=== PATIENT | female | born 1935 | race Caucasian/White ===

== ENCOUNTER 2016-03-18 07:16 | Outpatient (CLI) | payer MEDICARE, OTHER | END 2016-03-18 07:17 | disposition home or self-care (01) | DX: B97.89 Other viral agents as the cause of diseases classified elsewhere (principal) ==

== ENCOUNTER 2016-06-09 06:10 | Day surgery (SDC) | payer MEDICARE, OTHER ==
[2016-06-09] MEDS ORDERED: KETOROLAC 0.45% OPHTH DROPS OPTH ONE (06:40)
[2016-06-09] MEDS ORDERED: TROPICAMIDE 1% OPHTH 2 ML DROPS OPTH ONE (06:40)
[2016-06-09] MEDS ORDERED: CYCLOPENTOLATE 1% OPHTH DROPS 2 ML OPTH ONE (06:40)
[2016-06-09] MEDS ORDERED: LACTATED RINGERS 500 ML IV ONE (06:51)
[2016-06-09] MEDS ORDERED: BRIMONIDINE 0.2% OPHTH DROPS 5 ML OPTH ONE (07:24)
[2016-06-09] MEDS ORDERED: NEOMYCIN/POLYMYX/DEXAMETH OPHTH OINT OPTH ONE (07:25)
[2016-06-09] MEDS ORDERED: levoFLOXacin 0.5% OPHTH DROPS 5 ML OPTH ONE (07:25)
[2016-06-09] MEDS ORDERED: CHONDR SULF/HYALURONATE SYRINGE IO ONE ×2 (07:25)
[2016-06-09] MEDS ORDERED: BSS/LIDOCAINE/EPINEPHRINE 1 ML SYRINGE IO ONE ×2 (07:25→08:03)
[2016-06-09] MEDS ORDERED: EPINEPHrine 1 MG/ML AMP IO ONE ×2 (07:25)
[2016-06-09] MEDS ORDERED: PROPARACAINE 0.5% OPHTH DROPS 15 ML OPTH ONE (07:27)
[2016-06-09] MEDS ORDERED: MIDAZOLAM 2 MG/2 ML VIAL IVP ONE (08:14)
[2016-06-09] MEDS ORDERED: fentaNYL 100 MCG/2 ML VIAL IVP ONE (08:14)
== END 2016-06-09 06:11 | disposition home or self-care (01) ==
PROC: 08RK3JZ Replacement of Left Lens with Synthetic Substitute, Percutaneous Approach (ICD-10-PCS; principal; 2016-06-09 07:30)
DX: H25.12 Age-related nuclear cataract, left eye (principal); Z95.0 Presence of cardiac pacemaker; J45.909 Unspecified asthma, uncomplicated; J44.9 Chronic obstructive pulmonary disease, unspecified; F17.200 Nicotine dependence, unspecified, uncomplicated; E78.5 Hyperlipidemia, unspecified
CPT/HCPCS: 66984; V2632; V2787

== ENCOUNTER 2016-07-20 12:15 | Outpatient (CLI) | payer MEDICARE, OTHER | END 2016-07-20 12:16 | disposition home or self-care (01) | DX: S81.822A Laceration with foreign body, left lower leg, initial encounter (principal); T14.8 Other injury of unspecified body region; L08.9 Local infection of the skin and subcutaneous tissue, unspecified ==

== ENCOUNTER 2016-09-11 10:02 | Outpatient (CLI) | payer MEDICARE, OTHER ==
--- NOTE | 2016-09-11 20:26 | XRAY Report ---
EXAM: CHEST RADIOGRAPHY EXAM DATE: 09/11/2016 10:20 AM. CLINICAL HISTORY: EMPHYSEMA, HEMOPTYSIS. COMPARISON: 06/23/2015. TECHNIQUE: 2 views. FINDINGS: Lungs/Pleura: There are new basilar infiltrates present, left greater than right. Small left effusion is present. No pneumothorax. Mediastinum: Heart and mediastinal contours are unremarkable. Other: Stable left subclavian pacemaker. IMPRESSION: New left greater than right basilar infiltrates and small left effusion. [facility] Referring Provider Line: [phone] SITE ID: [id number]
== END 2016-09-11 10:03 | disposition home or self-care (01) ==
LOC: DI 10:02
PROVIDERS: ATTEND Family Medicine
DX: R91.8 Other nonspecific abnormal finding of lung field (principal); J90 Pleural effusion, not elsewhere classified
CPT/HCPCS: 71020

== ENCOUNTER 2016-09-27 10:26 | Outpatient (CLI) | payer MEDICARE, OTHER ==
--- NOTE | 2016-09-27 15:20 | XRAY Report ---
TWO VIEW CHEST: 09/27/2016 CLINICAL INDICATION: Pneumonia followup. COMPARISON: 09/11/2016. FINDINGS: Frontal and lateral views of the chest demonstrate a normal cardiac silhouette. A left sub clavian pacemaker is stable. Left basilar infiltrate is improving, with decreasing left effusion. No pneumothorax. IMPRESSION: IMPROVING BASILAR INFILTRATE AND LEFT EFFUSION. JOB #: [id number] EXT JOB #:[id number]
== END 2016-09-27 10:27 | disposition home or self-care (01) ==
LOC: DI.N 10:26
PROVIDERS: ATTEND Family Medicine
DX: J18.9 Pneumonia, unspecified organism (principal); Z95.0 Presence of cardiac pacemaker
CPT/HCPCS: 71020

== ENCOUNTER 2016-10-07 09:13 | Outpatient (CLI) | payer MEDICARE, OTHER ==
[2016-10-07 13:36] LABS: BASOPHILS # (AUTO) 0.1 10^3/uL (0.0-0.1); BASOPHILS % (AUTO) 1.2 %; EOSINOPHILS % (AUTO) 21.3 %; HCT - HEMATOCRIT 37.8 % (37.0-47.0); HGB - HEMOGLOBIN 12.9 g/dL (12.0-16.0); LYMPHOCYTES # (AUTO) 0.9 10^3/uL (1.5-3.5); LYMPHOCYTES % (AUTO) 9.2 %; MEAN CORPUSCULAR HEMOGLOBIN 30.9 pg (27.0-31.0); MEAN CORPUSCULAR HGB CONC 34.1 g/dL (32.0-36.0); MEAN CORPUSCULAR VOLUME 90.7 fL (81.0-99.0); MONOCYTES % (AUTO) 10.3 %; NEUTROPHILS # (AUTO) 5.5 10^3/uL (1.5-6.6); RED BLOOD COUNT 4.17 10^6/uL (4.20-5.40); RED CELL DISTRIBUTION WIDTH 13.5 % (12.0-15.0); UNCORRECTED WHITE BLOOD COUNT 9.4 x10^3/uL; WHITE BLOOD COUNT 9.4 x10^3/uL (4.8-10.8)
[2016-10-07 13:46] LABS: ALBUMIN/GLOBULIN RATIO 1.4 (1.0-2.2); BILIRUBIN,TOTAL 0.6 mg/dL (0.2-1.0); BUN - BLOOD UREA NITROGEN 18 mg/dL (6-20); CALCIUM 9.1 mg/dL (8.5-10.3); CARBON DIOXIDE - CO2 30 mmol/L (21-32); CHLORIDE 96 mmol/L (101-111); CHOL/HDL RATIO 1.9 (<4.4); CHOLESTEROL 169 mg/dL; CREATININE 0.5 mg/dL (0.4-1.0); GFR - MDRD 118 (>89); GLUCOSE 72 mg/dL (70-100); HDL CHOLESTEROL 87 mg/dL; LDL/HDL RATIO 0.8 (<4.4); SODIUM 132 mmol/L (135-145); TOTAL PROTEIN 6.1 g/dL (6.7-8.2); TRIGLYCERIDES 47 mg/dL; VLDL CHOLESTEROL 9 mg/dL
[2016-10-07 14:05] LABS: NP AUTO DIFFERENTIAL? NO; NP MAN DIFFERENTIAL? YES
== END 2016-10-07 09:14 ==
LOC: LAB.WCP 09:13
PROVIDERS: ATTEND Family Medicine
DX: I10 Essential (primary) hypertension (principal); E78.5 Hyperlipidemia, unspecified
CPT/HCPCS: 36415; 80053; 80061; 85025

== ENCOUNTER 2016-10-19 11:32 | Outpatient (CLI) | payer MEDICARE, OTHER ==
--- NOTE | 2016-10-20 17:26 | CT Report ---
CT OF THE CHEST WITHOUT CONTRAST: 10/19/2016 CLINICAL HISTORY: Pneumonia. TECHNIQUE: Axial images were obtained from the thoracic inlet through the adrenal glands. Sagittal and coronal reformations were performed. COMPARISON: 06/26/2015. FINDINGS: Moderately advanced centrilobular emphysema is again identified. There are superimposed bibasilar (left greater than right) air space / interstitial infiltrates noted. No pleural effusion is present. The previously described pulmonary nodules are minimally increased in size, uncertain significance. The right upper lobe pulmonary nodule measures approximately 10 mm (previously measured 9 mm). There is a left upper lobe pulmonary nodule measuring approximately 9 mm (previously measured 7 mm). Additional patchy areas of scar formation are unchanged. The heart and great vessels are stable. Advanced atherosclerotic calcifications are affiliated with the aorta and coronary arteries. There is no hilar, mediastinal or axillary adenopathy. A dual-lead pacer entering through the left subclavian vein is again noted. Advanced multilevel degenerative changes are present in the lumbar spine. There are no lytic or blastic destructive lesions. IMPRESSION: 1. BILATERAL BASILAR (LEFT GREATER THAN RIGHT) PATCHY INFILTRATES. NO PLEURAL EFFUSION. 2. MINIMAL INTERVAL INCREASE IN SIZE OF PULMONARY NODULES, UNCERTAIN SIGNIFICANCE. In accordance with CT protocol optimization, one or more of the following dose reduction techniques were utilized for this exam: automated exposure control, adjustment of mA and/or KV based on patient size, or use of iterative reconstructive technique. JOB #: [id number] EXT JOB #: [id number] TAYLA
== END 2016-10-19 11:33 | disposition home or self-care (01) ==
LOC: DI 11:32
PROVIDERS: ATTEND Family Medicine
DX: J18.9 Pneumonia, unspecified organism (principal); J43.2 Centrilobular emphysema; R91.8 Other nonspecific abnormal finding of lung field
CPT/HCPCS: 71250

== ENCOUNTER 2016-12-28 11:45 | Outpatient (CLI) | payer MEDICARE, OTHER | END 2016-12-28 11:46 | disposition home or self-care (01) | LOC: LAB.WCP 11:45 | PROVIDERS: ATTEND Family Medicine | DX: S81.811A Laceration without foreign body, right lower leg, initial encounter (principal) | CPT/HCPCS: 87070; 87077; 87205 ==

== ENCOUNTER 2017-08-22 | Outpatient (CLI) | END 2017-08-22 08:22 | disposition short-term general hospital (02) | CPT/HCPCS: A0425; A0427 ==

== ENCOUNTER 2017-09-13 20:03 | Outpatient (CLI) | payer MEDICARE, OTHER | END 2017-09-13 20:04 | disposition short-term general hospital (02) | LOC: EMS 20:03 | PROVIDERS: ATTEND Surgery | DX: R07.81 Pleurodynia (principal); W01.0XXA Fall on same level from slipping, tripping and stumbling without subsequent striking against object, initial encounter; Y92.007 Garden or yard of unspecified non-institutional (private) residence as the place of occurrence of the external cause | CPT/HCPCS: A0425; A0429 ==

== ENCOUNTER 2018-03-09 15:03 | Outpatient (CLI) | payer MEDICARE, OTHER | END 2018-03-09 15:04 | disposition short-term general hospital (02) | LOC: EMS 15:03 | PROVIDERS: ATTEND Surgery | DX: R06.02 Shortness of breath (principal) | CPT/HCPCS: A0425; A0429; A0888 ==

== ENCOUNTER 2018-03-22 08:00 | Outpatient (CLI) | payer MEDICARE, OTHER ==
[2018-03-22 18:42] LABS: HGB - HEMOGLOBIN 14.8 g/dL (12.0-16.0); MEAN CORPUSCULAR HEMOGLOBIN 30.7 pg (27.0-31.0); MEAN CORPUSCULAR VOLUME 93.1 fL (81.0-99.0); MEAN PLATELET VOLUME 6.8 fL (7.9-10.8); RED BLOOD COUNT 4.83 10^6/uL (4.20-5.40); RED CELL DISTRIBUTION WIDTH 13.8 % (12.0-15.0); WHITE BLOOD COUNT 10.9 x10^3/uL (4.8-10.8)
[2018-03-22 18:58] LABS: CALCIUM 8.9 mg/dL (8.5-10.3); CREATININE 0.5 mg/dL (0.4-1.0)
== END 2018-03-22 23:59 | disposition home or self-care (01) ==
LOC: LAB.WCP 08:00
PROVIDERS: ATTEND Family Medicine
DX: R06.00 Dyspnea, unspecified (principal)
CPT/HCPCS: 36415; 80048; 83880; 85027

== ENCOUNTER 2018-06-16 15:02 | Outpatient (CLI) | payer MEDICARE, OTHER ==
--- NOTE | 2018-06-16 15:27 | XRAY Report ---
Reason: DYSPNEA ON EXERTION, COPD, ACUTE EXACERBATION Procedure Date: 06/16/2018 Accession Number: [id number] / [id number] Procedure: WCP - Chest 2 View X-Ray CPT Code: 99247 FULL RESULT: EXAM: CHEST RADIOGRAPHY EXAM DATE: 06/16/2018 03:14 PM. CLINICAL HISTORY: Dyspnea on exertion, COPD, acute exacerbation. COMPARISON: Chest 2 views PA/LAT 03/27/2018. Chest angiogram 06/26/2015. TECHNIQUE: 2 views. FINDINGS: Lungs/Pleura: A previously identified 1 cm nodule in the right upper lung is redemonstrated and corresponds to a soft tissue nodule previously seen on the 2016 CT. No focal opacities evident. No pleural effusion. No pneumothorax. Increased lung volumes with flattened diaphragms, suggestive of obstructive lung disease. Mediastinum: Heart and mediastinal contours are stable with calcified aortic arch and pacemaker leads in the expected position. Other: The bones are qualitatively osteopenic; this limits evaluation for underlying fractures or masses. Stable thoracic kyphosis with mild multilevel anterior wedging and no single level dominant compression fracture detected. IMPRESSION: Obstructive lung disease without acute airspace consolidation detected. Soft tissue nodule. Unless long-term stability of these nodules has been documented (greater than 2 years), a chest CT is warranted at this time for follow-up. [facility]
== END 2018-06-16 15:03 | disposition home or self-care (01) ==
LOC: DI.WCP 15:02
PROVIDERS: ATTEND Family Medicine
DX: J44.1 Chronic obstructive pulmonary disease with (acute) exacerbation (principal); R91.1 Solitary pulmonary nodule
CPT/HCPCS: 71046

== ENCOUNTER 2018-06-22 12:33 | Outpatient (CLI) | payer MEDICARE, OTHER ==
--- NOTE | 2018-06-22 14:06 | CT Report ---
Reason: PULMONARY NODULE Procedure Date: 06/22/2018 Accession Number: [id number] / [id number] Procedure: CT - CHEST WO CPT Code: FULL RESULT: EXAM: CT CHEST EXAM DATE: 06/22/2018 12:49 PM. CLINICAL HISTORY: PULMONARY NODULE. COMPARISONS: CHEST W/O 10/19/2016 11:51 AM CHEST ANGIO 06/26/2015 4:10 PM. TECHNIQUE: Routine helical CT imaging was performed through the chest. IV contrast: None. Reconstructions: Coronal and sagittal. In accordance with CT protocol optimization, one or more of the following dose reduction techniques were utilized for this exam: automated exposure control, adjustment of mA and/or KV based on patient size, or use of iterative reconstructive technique. FINDINGS: Lungs/Pleura: Redemonstration of advanced centrilobular emphysema. Redemonstration of lobulated noncalcified mass in anterior right upper lobe (image 17, series 4) which currently measures 10 x 10 mm diameter. On the oldest available CT exam from 06/26/2015, it measured 9 x 9.2 mm diameter. There is a small subpleural subcentimeter scar like opacity in the anterior left upper lobe that is stable and unchanged dating back to 2016. No other focal abnormality. Since the 2017 exam, there has been essentially complete resolution of the previously described bilateral lower lobe pneumonia like parenchymal opacities. There is scarring of the medial basilar right lower lobe. Mediastinum: Normal. No adenopathy or masses. The heart and great vessels are normal. Dual lumen pacemaker present. Bones: Unremarkable. Visualized Abdomen: Unremarkable. Other: None. IMPRESSION: 1. Advanced emphysema. 2. There is a probably benign stable 9-10 mm maximal diameter lobulated noncalcified anterior right upper lobe mass not significantly changed dating back to 2016. Recommend one more additional follow-up CT exam in one year. Intravenous contrast is not required. 3. No change in subcentimeter scar like opacity in the anterior left upper lobe of no clinical significance. 4. Interval resolution of previous bilateral lower lobe pneumonia present in 2017. [facility]
== END 2018-06-22 12:34 | disposition home or self-care (01) ==
LOC: DI 12:33
PROVIDERS: ATTEND Family Medicine
DX: J98.4 Other disorders of lung (principal); J43.9 Emphysema, unspecified
CPT/HCPCS: 71250

== ENCOUNTER 2018-10-02 09:23 | Outpatient (CLI) | payer MEDICARE, OTHER ==
[2018-10-02 13:04] LABS: BASOPHILS # (AUTO) 0.1 10^3/uL (0.0-0.1); EOSINOPHILS # (AUTO) 0.7 10^3/uL (0.0-0.7); EOSINOPHILS % (AUTO) 10.5 %; HGB - HEMOGLOBIN 13.5 g/dL (12.0-16.0); LYMPHOCYTES # (AUTO) 1.7 10^3/uL (1.5-3.5); LYMPHOCYTES % (AUTO) 24.5 %; MEAN CORPUSCULAR HEMOGLOBIN 30.5 pg (27.0-31.0); MEAN CORPUSCULAR HGB CONC 32.2 g/dL (32.0-36.0); MEAN CORPUSCULAR VOLUME 94.8 fL (81.0-99.0); MEAN PLATELET VOLUME 9.1 fL (7.9-10.8); MONOCYTES # (AUTO) 0.6 10^3/uL (0.0-1.0); MONOCYTES % (AUTO) 8.1 %; NEUTROPHILS # (AUTO) 3.9 10^3/uL (1.5-6.6); NEUTROPHILS % (AUTO) 55.5 %; PLT - PLATELET COUNT 216 10^3/uL (130-450); RED BLOOD COUNT 4.42 10^6/uL (4.20-5.40); RED CELL DISTRIBUTION WIDTH 13.9 % (12.0-15.0); WHITE BLOOD COUNT 7.1 x10^3/uL (4.8-10.8)
== END 2018-10-02 09:24 | disposition home or self-care (01) ==
LOC: LAB.WCP 09:23
PROVIDERS: ATTEND Family Medicine
DX: F41.9 Anxiety disorder, unspecified (principal); R23.8 Other skin changes
CPT/HCPCS: 36415; 84443; 85025

== ENCOUNTER 2018-11-13 08:00 | Outpatient (CLI) | payer MEDICARE, OTHER ==
[2018-11-13 18:40] LABS: BASOPHILS # (AUTO) 0.1 10^3/uL (0.0-0.1); EOSINOPHILS # (AUTO) 0.6 10^3/uL (0.0-0.7); EOSINOPHILS % (AUTO) 8.8 %; HGB - HEMOGLOBIN 13.8 g/dL (12.0-16.0); LYMPHOCYTES # (AUTO) 1.6 10^3/uL (1.5-3.5); LYMPHOCYTES % (AUTO) 22.3 %; MEAN CORPUSCULAR HEMOGLOBIN 31.6 pg (27.0-31.0); MEAN CORPUSCULAR HGB CONC 33.9 g/dL (32.0-36.0); MEAN CORPUSCULAR VOLUME 93.1 fL (81.0-99.0); MEAN PLATELET VOLUME 9.3 fL (7.9-10.8); MONOCYTES # (AUTO) 0.6 10^3/uL (0.0-1.0); MONOCYTES % (AUTO) 9.1 %; NEUTROPHILS # (AUTO) 4.1 10^3/uL (1.5-6.6); NEUTROPHILS % (AUTO) 58.7 %; PLT - PLATELET COUNT 178 10^3/uL (130-450); RED BLOOD COUNT 4.37 10^6/uL (4.20-5.40); RED CELL DISTRIBUTION WIDTH 13.2 % (12.0-15.0)
== END 2018-11-13 08:01 | disposition home or self-care (01) ==
LOC: LAB.R 08:00
PROVIDERS: ATTEND Physician Assistant
DX: R23.8 Other skin changes (principal)
CPT/HCPCS: 85025

== ENCOUNTER 2019-02-11 08:24 | Emergency (ER) | payer MEDICARE, OTHER ==
[2019-02-11 08:34] VITALS: BP 130/62
--- NOTE | 2019-02-11 08:51 | ED Physician Documentation ---
PD HPI UPPER EXT INJURY - Stated complaint Stated Complaint: WOUND CHECK RT ARM - Chief complaint Chief Complaint: Laceration - History obtained from History obtained from: Patient - History of Present Illness Location: Right, Forearm Type of injury: Blunt / blow (she had had skin tear of forearm from hitting arm on object 1 1/2 weeks ago, that was healing, with small area of skin loss that pulled off with bandaid removal. and then her grabbed her forearm last night in his sleep (she denies intentional harm on his part) and rubbed at the prior wound, with pulling/tearing of the skin again and slightly bigger now. The pulled skin is thin.) Where injury occurred: Home Timing - onset: Last night Timing - details: Abrupt onset Worsened by: Palpating Review of Systems Skin: reports: Laceration (s) (thin skin peeling wound.) Neurologic: denies: Focal weakness, Numbness PD PAST MEDICAL HISTORY - Past Medical History Past Medical History: Yes Cardiovascular: Hypertension, High cholesterol Respiratory: Asthma, COPD, Emphysema Endocrine/Autoimmune: None GI: None : None HEENT: Chronic vision loss, Chronic hearing loss Psych: Depression Musculoskeletal: Osteoarthritis, Other Derm: None - Past Surgical History Past Surgical History: Yes General: Colonoscopy Cardiovascular: Pacemaker - Present Medications Home Medications: Ambulatory Orders Medication Instructions Recorded Confirmed Albuterol Sulfate [Proair 1 puffs IH BID 08/03/14 07/30/16 Respiclick] Carbidopa/Levodopa [Carbidopa-Levo 3 tab PO TID 08/03/14 07/30/16 25-100 mg Odt] amLODIPine [Norvasc] 5 mg PO DAILY 08/03/14 07/30/16 Cholecalciferol (Vitamin D3) 1,000 unit PO DAILY 06/08/16 07/30/16 [Vitamin D3] Potassium Chloride 1 tab PO DAILY 07/30/16 07/30/16 - Allergies Allergies/Adverse Reactions: Allergies Allergy/AdvReac Type Severity Reaction Status Date / Time No Known Drug Allergies Allergy Verified 02/11/19 08:34 - Social History Does the pt smoke?: Yes Smoking Status: Current every day smoker Does the pt drink ETOH?: Yes Does the pt have substance abuse?: No - Immunizations Immunizations are current?: Yes - POLST Patient has POLST: No PD ED PE NORMAL - Vitals Vital signs reviewed: Yes - General General: Alert and oriented X 3, No acute distress, Well developed/nourished - Derm Derm: Normal color, Warm and dry - Extremities Extremities: Other (right forearm with 2 cm area of skin tear that is thin and partial thickness. No deeper wound. No FB/appears clean. No bleeding. ) - Neuro Neuro: No motor deficit, No sensory deficit Results - Vitals Vitals: Vital Signs - 24 hr 02/11/19 08:27 Temperature 36.7 C Heart Rate 63 Respiratory 16 Rate Blood Pressure 130/62 O2 Saturation 100 Oxygen O2 Source Room air PD MEDICAL DECISION MAKING - ED course Complexity details: considered differential (cleansed and then dried; benzion and steristrips applied. Then dressing with Telfa and coban. ), d/w patient Departure - Departure Disposition: 01 Home, Self Care Clinical Impression: Skin tear of forearm without complication Qualifiers: Encounter type: initial encounter Laterality: right Qualified Code(s): S51.811A - Laceration without foreign body of right forearm, initial encounter Condition: Stable Record reviewed to determine appropriate education?: Yes Instructions: ED Laceration Ext Sutr Stap Tape Follow-Up: Ailyn Odonnell PA-C [Primary Care Provider] - Comments: Leave the Steri-Strips on the skin and keep them clean and dry. This will hold down the flap of skin over the next week or so. Allow them to fall off on their own in that timeframe. Over that use a nonadherent bandage such as Telfa or gauze and wrap it gently and not too tightly with a Covan or self adherent bandage and not to apply tape to the skin itself. Recheck if signs of infection. Follow-up with your primary care if it is not healing well over the next week. Discharge Date/Time: 02/11/19 09:29
== END 2019-02-11 09:29 | disposition home or self-care (01) ==
LOC: ED 08:24
DX: S51.811A Laceration without foreign body of right forearm, initial encounter (principal); X58.XXXA Exposure to other specified factors, initial encounter; Y93.84 Activity, sleeping; Y92.003 Bedroom of unspecified non-institutional (private) residence as the place of occurrence of the external cause; I10 Essential (primary) hypertension; F17.200 Nicotine dependence, unspecified, uncomplicated
CPT/HCPCS: 99282

== ENCOUNTER 2019-03-23 12:18 | Outpatient (CLI) | payer MEDICARE, OTHER ==
--- NOTE | 2019-03-26 11:42 | Mammography Report ---
Reason: ROUTINE MAMMO Procedure Date: 03/23/2019 Accession Number: [id number] / [id number] Procedure: MGN - Screening Mammo Dig Bilat CPT Code: Final Report FULL RESULT: EXAM: Screening Mammo Dig Bilat DATE: 03/23/2019 12:53 PM CLINICAL HISTORY: Routine screening TECHNIQUE: (B) - Bilateral CC and MLO views were obtained. COMPARISON: 04/30/2014, 04/12/2013, 04/27/2012, 04/22/2011, 03/19/2010, 03/14/2009 PARENCHYMAL PATTERN: (VD) - The breasts demonstrate extremely dense parenchyma bilaterally, limiting the sensitivity of mammography. FINDINGS: No significant interval change. Cardiac pacemaker left axilla. There are no suspicious masses, calcifications, or areas of distortion. IMPRESSION: Negative examination. BI-RADS category 1. RECOMMENDATION: (ANNUAL) - Recommend routine annual screening mammography. BI-RADS CATEGORY: (1) - Negative. STANDARD QUALIFYING STATEMENTS: 1. This examination was not reviewed with the aid of Computer-Aided Detection (CAD). 2. A negative or benign imaging report should not preclude biopsy if clinically suspicious findings are present. 3. Dense breasts may obscure an underlying neoplasm. 4. This examination was reviewed without the aid of 3D breast imaging (tomosynthesis).
== END 2019-03-23 12:19 | disposition home or self-care (01) ==
LOC: DI.N 12:18
DX: Z12.31 Encounter for screening mammogram for malignant neoplasm of breast (principal)
CPT/HCPCS: 77067

== ENCOUNTER 2019-07-10 08:00 | Outpatient (CLI) | payer MEDICARE, OTHER ==
[2019-07-10 13:46] LABS: ALBUMIN 4.3 g/dL (3.2-5.5); ALBUMIN/GLOBULIN RATIO 1.7 (1.0-2.2); ALKALINE PHOSPHATASE 83 IU/L (42-121); ALT ALANINE AMINOTRANSFERASE < 10 IU/L (10-60); AST ASPARTATE AMINOTRANSFERASE 21 IU/L (10-42); BILIRUBIN,TOTAL 0.9 mg/dL (0.2-1.0); BUN - BLOOD UREA NITROGEN 18 mg/dL (6-20); CALCIUM 9.3 mg/dL (8.5-10.3); CARBON DIOXIDE - CO2 31 mmol/L (21-32); CHLORIDE 100 mmol/L (101-111); CHOL/HDL RATIO 2.3 (<4.4); CHOLESTEROL 227 mg/dL; CREATININE 0.7 mg/dL (0.4-1.0); GLUCOSE 100 mg/dL (70-100); HDL CHOLESTEROL 98 mg/dL; LDL CHOLESTEROL,CALCULATED 120 mg/dL; LDL/HDL RATIO 1.2 (<4.4); SODIUM 137 mmol/L (135-145); TOTAL PROTEIN 6.8 g/dL (6.7-8.2); VLDL CHOLESTEROL 9 mg/dL
== END 2019-07-10 23:59 | disposition home or self-care (01) ==
LOC: LAB.WCP 08:00
PROVIDERS: ATTEND Physician Assistant Medical
DX: E78.5 Hyperlipidemia, unspecified (principal)
CPT/HCPCS: 36415; 80053; 80061; 83721

== ENCOUNTER 2019-08-02 08:53 | Outpatient (CLI) | payer MEDICARE, OTHER ==
--- NOTE | 2019-08-03 11:36 | CT Report ---
Reason: PULMONARY NODULE Procedure Date: 08/02/2019 Accession Number: [id number] / [id number] Procedure: CT - CHEST WO CPT Code: Final Report FULL RESULT: EXAM: CT CHEST EXAM DATE: 08/02/2019 09:23 AM. CLINICAL HISTORY: Pulmonary nodule. COMPARISONS: CHEST W/O 06/22/2018 12:46 PM CHEST W/O 10/19/2016 11:51 AM CHEST ANGIO 06/26/2015 4:10 PM. TECHNIQUE: Routine helical CT imaging was performed through the chest. IV contrast: None. Reconstructions: Coronal and sagittal. In accordance with CT protocol optimization, one or more of the following dose reduction techniques were utilized for this exam: automated exposure control, adjustment of mA and/or KV based on patient size, or use of iterative reconstructive technique. FINDINGS: Lungs/Pleura: Extensive emphysematous changes are again seen. Lobular anterior right upper lobe nodule measuring 11 x 10 mm image 100, series 4 stable compared to 06/22/2018 although slightly more prominent compared to 10/19/2016 and 06/26/2015 where it measured up to 9 mm. Punctate calcification is seen within the nodule on the current study. Stellate nodular opacities are seen in the left upper lobe seen on image 81, series 4 which is new measuring 6.5 mm and on image 84 series 4 measuring 12 mm which is slightly more prominent. Focal Subsolid nodular opacity image 141, series 4 right upper lobe measuring 10 mm increased in density and slightly more prominent. Bilateral bronchial dilatation. Bilateral mid and lower lung scar/atelectasis. Mediastinum: Heart size is normal. Coronary artery calcified plaque. Thoracic aortic calcified plaque. No enlarged mediastinal or hilar lymph nodes. Small hiatal hernia. Bones: Degenerative changes of the thoracic spine as well as the upper lumbar and lower cervical spine. No acute osseous abnormalities. Visualized Abdomen: Abdominal aortic atherosclerosis. Low-attenuation lesion left lobe of the liver 12 mm, stable. Otherwise unremarkable upper abdomen. Other: None. IMPRESSION: 1. Marked emphysematous changes. 2. Lobular 11 x 10 mm anterior right upper lobe lesion stable compared to recent studies although minimally more prominent compared to 06/26/2015 although similar compared to the most recent comparison studies. 3. New 6.5 mm left upper lobe nodule and more prominent left upper lobe nodular opacity and groundglass nodule in the inferior right upper lobe, slightly more dense. Continued surveillance recommended based on Fleischner criteria with follow-up chest CT in 3-6 months. [facility]
== END 2019-08-02 08:54 | disposition home or self-care (01) ==
LOC: DI 08:53
PROVIDERS: ATTEND Physician Assistant Medical
DX: R91.8 Other nonspecific abnormal finding of lung field (principal); J43.9 Emphysema, unspecified
CPT/HCPCS: 71250

== ENCOUNTER 2019-08-15 09:29 | Outpatient (CLI) | payer MEDICARE, OTHER ==
--- NOTE | 2019-08-15 11:14 | DEXA Report ---
Reason: POST MENOPAUSAL Procedure Date: 08/15/2019 Accession Number: [id number] / [id number] Procedure: DEX - Dexa Spine and/or Hip CPT Code: Final Report FULL RESULT: PROCEDURE: Dexa Spine and/or Hip INDICATIONS: POST MENOPAUSAL TECHNIQUE: Dual energy x-ray absorptiometry (DXA) was performed on a [employer] System. Regions measured are the AP Spine, femoral neck, and if needed forearm. COMPARISON: None. FINDINGS: Lumbar Spine: Bone Mineral Density 1.115 g/cm/cm,T score -0.5, Left Femoral Neck: Bone Mineral Density 0.567 g/cm/cm, T score -3.5, (T score greater or equal to -1.0: NORMAL) (T score from -1.1 to -2.4: OSTEOPENIA) (T score less than or equal to -2.5 to: OSTEOPOROSIS) Impression: Osteoporosis. Patients with diagnosis of osteoporosis or osteopenia should have regular bone mineral density assessment. For those eligible for Medicare, routine testing is allowed once every 2 years. Testing frequency can be increased for patients who have rapidly progressing disease or for those who are receiving medical therapy to restore bone mass. Reviewed by: Israel Cantu MD on 08/15/2019 11:13 AM PDT Approved by: Israel Cantu MD on 08/15/2019 11:13 AM PDT Station ID: [id number]
== END 2019-08-15 09:30 | disposition home or self-care (01) ==
LOC: DI 09:29
PROVIDERS: ATTEND Physician Assistant Medical
DX: M81.0 Age-related osteoporosis without current pathological fracture (principal)
CPT/HCPCS: 77080

== ENCOUNTER 2019-12-11 09:44 | Outpatient (CLI) | payer MEDICARE, OTHER ==
[2019-12-11 12:28] LABS: CALCIUM 8.9 mg/dL (8.5-10.3); CREATININE 0.6 mg/dL (0.4-1.0)
== END 2019-12-11 23:59 | disposition home or self-care (01) ==
LOC: LAB.WCP 09:44
PROVIDERS: ATTEND Physician Assistant Medical
DX: J98.4 Other disorders of lung (principal)
CPT/HCPCS: 36415; 80048

== ENCOUNTER 2019-12-24 09:00 | Outpatient (CLI) | payer MEDICARE, OTHER ==
[2019-12-24] MEDS ORDERED: IOVERSOL 320 100 ML VIAL IVP ONE ×2 (09:25→10:17)
--- NOTE | 2019-12-24 12:36 | XRAY Report ---
PROCEDURE: Hip w/Pelvis 2-3V RT INDICATIONS: RIGHT HIP PAIN TECHNIQUE: AP pelvis with lateral view(s) of the bilateral hip(s). COMPARISON: None. FINDINGS: Bones: No fractures or dislocations. Pelvic ring appears intact. No suspicious bony lesions. Ther e is severe right and mild to moderate left degenerative narrowing of the hip joints. Prominent subch ondral sclerosis and questionable very subtle flattening of the femoral head as noted on the right. P rominent periarticular osteophytes are also present. Soft tissues: The visualized bowel gas pattern is normal. No suspicious soft tissue calcifications. IMPRESSION: Bilateral osteoarthritic change within the hips most severe on the right. Very subtle ch anges on the right are present suggestive of potential early changes of avascular necrosis. Reviewed by: Lashawn Delaney MD on 12/24/2019 12:35 PM PDT Approved by: Lashawn Delaney MD on 12/24/2019 12:35 PM PDT Station ID: [id number]
--- NOTE | 2019-12-24 12:42 | CT Report ---
PROCEDURE: CHEST W INDICATIONS: RT HIP PAIN, PULMONARY NODULE CONTRAST: IV CONTRAST: Optiray 320 ml: 100 PO CONTRAST: *NO PO CONTRAST TECHNIQUE: After the administration of intravenous contrast, 5 mm thick sections acquired from the pulmonary api jackie to the posterior costophrenic angles. 7 mm thick coronal MIP reformats were acquired. For radia tion dose reduction, the following was used: automated exposure control, adjustment of mA and/or kV according to patient size. COMPARISON: 08/02/2019 06/22/2018 FINDINGS: Image quality: Excellent. Lungs and pleura: Lobulated 10 mm solid mass in the anterior right upper lobe (/), appears stable . Several left upper lobe lung nodules are redemonstrated, one rounded measuring 6 mm (76, another is spiculated and linear, located anteriorly measuring 1.2 cm in length, another anterior solid nodul e measuring 6 mm (/87), and one measuring 3 mm, slightly more caudal. Groundglass nodular opacity la terally in the right upper lobe with irregular margins is essentially unchanged, measuring about 1.6 cm (/135). Findings are superimposed on moderate diffuse emphysematous changes. Mucous plugging is p resent in right lower lobe central airways. No significant bronchiectasis or peribronchial thickening . No pleural effusion. Mediastinum: Heart size is normal. Left-sided pacemaker is present. No pericardial effusion. No me diastinal or hilar adenopathy by size criteria. There is mild enlargement of the right main pulmonary artery. Pulmonary artery outflow tract and aortic arch are normal caliber.. Moderate aortic arch ca lcification. Heavy noncalcified and calcified plaque in the descending thoracic aorta and upper abdom inal aorta. 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 Esophagus is normal in caliber. No hiatal hernia. Bones and chest wall: No suspicious bony lesions. Multiple levels of disc height loss and endplate d egeneration throughout the mid to lower thoracic spine. No vertebral body compression fractures. No axillary or supraclavicular adenopathy by size criteria. Thyroid gland is unremarkable. Abdomen: Visualized upper abdominal solid organs appear normal. Upper abdominal bowel loops are nor mal in caliber. IMPRESSION: 1. Stable 10 mm right upper lobe lung nodule. 2. 6 mm ovoid central left upper lobe lung nodule is more suspicious given its development since l 2018. 3. Spiculated anterior left upper lobe scar has slowly become more prominent. 4. Irregular groundglass opacity in the more caudal right upper lobe is fairly stable. 5. Moderate emphysema. 6. Atherosclerosis. 7. 3-6 month follow-up chest CT is recommended for continued surveillance. Reviewed by: Mari Zarate MD on 12/24/2019 12:41 PM PDT Approved by: Mari Zarate MD on 12/24/2019 12:41 PM PDT Station ID: [id number]
== END 2019-12-24 09:01 | disposition home or self-care (01) ==
LOC: DI 09:00
PROVIDERS: ATTEND Physician Assistant Medical
DX: R91.8 Other nonspecific abnormal finding of lung field (principal); J43.9 Emphysema, unspecified; I70.0 Atherosclerosis of aorta; M16.0 Bilateral primary osteoarthritis of hip; R93.6 Abnormal findings on diagnostic imaging of limbs
CPT/HCPCS: 71260; 73502; Q9967

== ENCOUNTER 2020-02-06 09:04 | Outpatient (CLI) | payer MEDICARE, OTHER ==
[2020-02-06 13:45] LABS: ALBUMIN 4.6 g/dL (3.2-5.5); ALBUMIN/GLOBULIN RATIO 1.8 (1.0-2.2); ALKALINE PHOSPHATASE 61 IU/L (42-121); ALT ALANINE AMINOTRANSFERASE < 10 IU/L (10-60); AST ASPARTATE AMINOTRANSFERASE 19 IU/L (10-42); BILIRUBIN,TOTAL 0.9 mg/dL (0.2-1.0); BUN - BLOOD UREA NITROGEN 20 mg/dL (6-20); CALCIUM 9.4 mg/dL (8.5-10.3); CARBON DIOXIDE - CO2 28 mmol/L (21-32); CHLORIDE 97 mmol/L (101-111); CHOL/HDL RATIO 1.9 (<4.4); CHOLESTEROL 224 mg/dL; CREATININE 0.7 mg/dL (0.4-1.0); GLUCOSE 95 mg/dL (70-100); HDL CHOLESTEROL 116 mg/dL; LDL CHOLESTEROL,CALCULATED 97 mg/dL; LDL/HDL RATIO 0.8 (<4.4); SODIUM 133 mmol/L (135-145); TOTAL PROTEIN 7.1 g/dL (6.7-8.2); VLDL CHOLESTEROL 11 mg/dL
== END 2020-02-06 09:05 | disposition home or self-care (01) ==
LOC: LAB.N 09:04
PROVIDERS: ATTEND Physician Assistant Medical
DX: E78.5 Hyperlipidemia, unspecified (principal)
CPT/HCPCS: 36415; 80053; 80061; 83721

== ENCOUNTER 2020-03-21 08:28 | Outpatient (CLI) | payer MEDICARE, OTHER ==
[2020-03-21] MEDS ORDERED: IOVERSOL 320 100 ML VIAL IVP ONE ×2 (08:43→12:12)
[2020-03-21 09:25] LABS: CALCIUM 9.5 mg/dL (8.5-10.3); CREATININE 0.8 mg/dL (0.4-1.0)
--- NOTE | 2020-03-21 11:34 | CT Report ---
PROCEDURE: CHEST W INDICATIONS: PULMONARY NODULE CONTRAST: IV CONTRAST: Optiray 320 ml: 80 PO CONTRAST: *NO PO CONTRAST TECHNIQUE: After the administration of intravenous contrast, 5 mm thick sections acquired from the pulmonary api jackie to the posterior costophrenic angles. 7 mm thick coronal MIP reformats were acquired. For radia tion dose reduction, the following was used: automated exposure control, adjustment of mA and/or kV according to patient size. COMPARISON: 12/24/2019, 08/03/2019, 10/22/2016 FINDINGS: Image quality: Excellent. Lungs and pleura: 10 mm lobulated anterior right upper lobe lung mass remains stable. The anterior l eft upper lobe spiculated solid nodule subjacent to the patient's ICD has been stable over the long-t erm in size and morphology, variably seen over the years given slice selection and changes in techniq ue. The rounded lung nodule centrally in the left upper lobe measures 5 mm, stable, and the linear sc ar anterior to this appears stable as well. A groundglass nodule laterally in the right upper lobe at a midlung level has not significantly changed. Findings are superimposed on a background of moderate panlobular emphysema. There is mild diffuse airway thickening involving middle and lower lungs bilat erally there are no dense consolidations or pleural effusions. Mediastinum: Heart size is normal. Dual-lead ICD is present. Mild coronary artery calcification. Pro bable high-grade calcific stenosis at the origin of the left subclavian artery. Mild right main pulmo nary artery enlargement, likely secondary pulmonary artery hypertension. The esophagus is normal sameera lexus and there is redemonstration of a low-density posterior paraesophageal mediastinal fluid collecti on. Heavy thoracic and proximal abdominal aortic calcification. Bones and chest wall: No suspicious bony lesions. Extensive degenerative disc disease. No vertebral body compression fractures. No axillary or supraclavicular adenopathy by size criteria. Thyroid gl and contains a tiny left lobe cyst. Abdomen: Visualized upper abdominal solid organs appear normal. Upper abdominal bowel loops are nor mal in caliber. IMPRESSION: 1. A rounded 5 mm central left upper lobe lung nodule is stable compared to the most recent prior arlene dy but new within the past 2 years. 6 month follow-up chest CT is recommended for continued close tamera veillance. 2. Groundglass nodule in the lateral caudal right upper lobe is stable, however long-term surveillanc e is recommended given suspicion for indolent neoplasm. 3. Stable lobulated right upper lobe lung nodule and irregular scar in the anterior left upper lobe s ubjacent to the pacemaker are both stable and likely benign. 4. Moderate emphysema. 5. 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 6. 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 Reviewed by: Mari Zarate MD on 03/21/2020 11:33 AM PST Approved by: Mari Zarate MD on 03/21/2020 11:33 AM PST Station ID: [id number]
== END 2020-03-21 08:29 | disposition home or self-care (01) ==
LOC: LAB 08:28
PROVIDERS: ATTEND Physician Assistant Medical
DX: R91.1 Solitary pulmonary nodule (principal); R91.8 Other nonspecific abnormal finding of lung field; J43.9 Emphysema, unspecified; I25.10 Atherosclerotic heart disease of native coronary artery without angina pectoris
CPT/HCPCS: 36415; 71260; 80048; Q9967

== ENCOUNTER 2020-11-19 09:25 | Outpatient (CLI) | payer MEDICARE, OTHER ==
--- NOTE | 2020-11-20 08:40 | Mammography Report ---
BILATERAL DIGITAL SCREENING MAMMOGRAM: 11/19/2020 CLINICAL: Routine screening. Comparison is made to exams dated: 03/23/2019 mammogram, 04/30/2014 mammogram, 04/12/2013 mammogram, 04/08 mammogram, 04/22/2011 mammogram, and 03/19/2010 mammogram - [facility]. The t issue of both breasts is predominantly fatty. No significant masses, calcifications, or other findings are seen in either breast. There has been no significant interval change. IMPRESSION: NEGATIVE There is no mammographic evidence of malignancy. A 1 year screening mammogram is recommended. This exam was interpreted at Station ID: [id number]. NOTE: For mammograms, a report in lay terms will be sent to the patient. Approximately 15% of breast malignancies will not be visualized mammographically. In the management of a palpable breast mass, a negative mammogram must not discourage biopsy of a clinically suspicious lesion. Electronically Signed By: Donavon Islas M.D., jr/donna:11/19/2020 12:02:58 ACR BI-RADS Category 1: Negative 3341F PARENCHYMAL PATTERN: (F) - The breast(s) demonstrate(s) diffuse fatty replacement. BI-RADS CATEGORY: (1) - 1 RECOMMENDATION: (ANNUAL) - Recommend routine annual screening mammography. [id number] 1 year screening LATERALITY: (B)
== END 2020-11-19 09:26 | disposition home or self-care (01) ==
LOC: DI.N 09:25
DX: Z12.31 Encounter for screening mammogram for malignant neoplasm of breast (principal)

== ENCOUNTER 2020-12-17 08:43 | Outpatient (CLI) | payer MEDICARE, OTHER ==
--- NOTE | 2020-12-17 17:09 | CT Report ---
PROCEDURE: CHEST WO INDICATIONS: PULMONARY NODULE TECHNIQUE: Noncontrast 1mm axial images were acquired from the pulmonary apices to the posterior costophrenic an gles. Axial 5 mm soft tissue kernel reconstructions were performed as well as 8 mm axial MIP and cor onal and sagittal 5 mm reformations. For radiation dose reduction, the following was used: automate d exposure control, adjustment of mA and/or kV according to patient size. COMPARISON: CT chest 03/21/2020, 12/24/2019, 08/02/2019, 4 10/17/2018, 10/19/2016 FINDINGS: Image quality: Excellent. Lungs and pleura: No acute air space opacities. No pleural effusions or pneumothorax. Central and peripheral airways are patent and normal in caliber. Lobulated anterior right upper lobe mass measuring 1.0 cm on series 4 image 90 unchanged. In the inte rval since the prior exam, there is a spiculated area of increased density within the left upper lobe on series 4 image 97 measuring 2.0 x 2.3 cm. This is now become contiguous with the previous spicula yodit nodule identified on prior exam. Mediastinum: Heart size is normal. No pericardial effusion. No mediastinal adenopathy by size crit eria. Thoracic aorta and central pulmonary arteries are normal in size. Esophagus is normal in sameera lexus. No hiatal hernia. Low-attenuation masses present adjacent to the descending thoracic aorta elida suring 3.3 x 3.3 cm compared to 3.2 x 2.7 cm. Bones and chest wall: No suspicious bony lesions. No vertebral body compression fractures. No axil martine or supraclavicular adenopathy by size criteria. The thyroid is normal in size and there are no incidental findings. Abdomen: Visualized upper abdominal solid organs and bowel loops appear normal in the absence of con trast. IMPRESSION: 1. Lobulated right upper lobe nodule is unchanged. 2. Interval development of spiculated opacity within the left upper lobe concerning for malignancy. E valuation PET scan or biopsy is recommended. 3. Mild interval enlargement of low-attenuation mass adjacent to the descending thoracic aorta. As pr eviously noted, this is suspicious for duplication cyst. CLINICAL RECOMMENDATION STATEMENTS: In patients <35 years with an ITN detected on CT, MRI, or extrathyroidal ultrasound, the Committee re commends further evaluation with dedicated thyroid ultrasound if the nodule is "e1 cm and has no susp icious imaging features, and if the patient has normal life expectancy. In patients "e35 years with an ITN detected on CT, MRI, or extrathyroidal ultrasound, the Committee r ecommends further evaluation with dedicated thyroid ultrasound if the nodule is "e1.5 cm and has no s uspicious imaging features, and if the patient has normal life expectancy. (ACR, 2014) Reviewed by: Lashawn Delaney MD on 12/17/2020 5:07 PM PDT Approved by: Lashawn Delaney MD on 12/17/2020 5:07 PM PDT Station ID: [id number]
== END 2020-12-17 08:44 | disposition home or self-care (01) ==
LOC: DI 08:43
PROVIDERS: ATTEND Physician Assistant Medical
DX: R91.1 Solitary pulmonary nodule (principal); R91.8 Other nonspecific abnormal finding of lung field; R93.89 Abnormal findings on diagnostic imaging of other specified body structures

== ENCOUNTER 2021-01-01 08:00 | Outpatient (CLI) | payer MEDICARE, OTHER ==
[2021-01-01 12:28] LABS: BASOPHILS # (AUTO) 0.1 10^3/uL (0.0-0.1); BASOPHILS % (AUTO) 1.1 %; EOSINOPHILS # (AUTO) 0.5 10^3/uL (0.0-0.7); HCT - HEMATOCRIT 43.4 % (37.0-47.0); HGB - HEMOGLOBIN 14.1 g/dL (12.0-16.0); LYMPHOCYTES # (AUTO) 0.9 10^3/uL (1.5-3.5); LYMPHOCYTES % (AUTO) 14.1 %; MEAN CORPUSCULAR HEMOGLOBIN 30.9 pg (27.0-31.0); MEAN CORPUSCULAR HGB CONC 32.5 g/dL (32.0-36.0); MEAN CORPUSCULAR VOLUME 95.2 fL (81.0-99.0); MONOCYTES # (AUTO) 0.7 10^3/uL (0.0-1.0); MONOCYTES % (AUTO) 10.9 %; NEUTROPHILS # (AUTO) 4.3 10^3/uL (1.5-6.6); NEUTROPHILS % (AUTO) 65.4 %; PLT - PLATELET COUNT 186 10^3/uL (130-450); RED BLOOD COUNT 4.56 10^6/uL (4.20-5.40); RED CELL DISTRIBUTION WIDTH 13.4 % (12.0-15.0); WHITE BLOOD COUNT 6.5 x10^3/uL (4.8-10.8)
[2021-01-01 13:02] LABS: PARTIAL THROMBOPLASTIN TIME 26.6 secs (24.9-33.3)
== END 2021-01-01 23:59 | disposition home or self-care (01) ==
LOC: LAB.WCP 08:00
PROVIDERS: ATTEND Physician Assistant Medical
DX: R91.1 Solitary pulmonary nodule (principal)
CPT/HCPCS: 36415; 85025; 85610; 85730

== ENCOUNTER 2021-01-02 08:56 | Outpatient (CLI) | payer MEDICARE, OTHER ==
[2021-01-02] MEDS: LACTATED RINGERS 1,000 ML IV ONE ×2 (09:12→12:04)
[2021-01-02] MEDS ORDERED: BUFFERED LIDOCAINE 10 ML SYRINGE ONE (09:58)
[2021-01-02 10:07] LABS: BASOPHILS # (AUTO) 0.1 10^3/uL (0.0-0.1); BASOPHILS % (AUTO) 1.1 %; EOSINOPHILS # (AUTO) 0.6 10^3/uL (0.0-0.7); EOSINOPHILS % (AUTO) 8.7 %; HCT - HEMATOCRIT 40.5 % (37.0-47.0); HGB - HEMOGLOBIN 13.5 g/dL (12.0-16.0); LYMPHOCYTES # (AUTO) 1.1 10^3/uL (1.5-3.5); LYMPHOCYTES % (AUTO) 16.7 %; MEAN CORPUSCULAR HEMOGLOBIN 31.1 pg (27.0-31.0); MEAN CORPUSCULAR HGB CONC 33.3 g/dL (32.0-36.0); MEAN CORPUSCULAR VOLUME 93.3 fL (81.0-99.0); MEAN PLATELET VOLUME 8.5 fL (7.9-10.8); MONOCYTES # (AUTO) 0.6 10^3/uL (0.0-1.0); MONOCYTES % (AUTO) 9.1 %; NEUTROPHILS # (AUTO) 4.1 10^3/uL (1.5-6.6); NEUTROPHILS % (AUTO) 63.9 %; PLT - PLATELET COUNT 151 10^3/uL (130-450); RED BLOOD COUNT 4.34 10^6/uL (4.20-5.40); RED CELL DISTRIBUTION WIDTH 13.3 % (12.0-15.0); WHITE BLOOD COUNT 6.5 x10^3/uL (4.8-10.8)
[2021-01-02] MEDS ORDERED: MIDAZOLAM 2 MG/2 ML VIAL ONE (10:10)
[2021-01-02] MEDS ORDERED: fentaNYL 100 MCG/2 ML VIAL ONE (10:11)
[2021-01-02 10:18] LABS: PT - PROTHROMBIN TIME 11.2 secs (9.9-12.6)
[2021-01-02 10:26] LABS: PARTIAL THROMBOPLASTIN TIME 26.2 secs (24.9-33.3)
--- NOTE | 2021-01-02 12:50 | XRAY Report ---
PROCEDURE: Chest 1 View X-Ray INDICATIONS: POST LUNG BIOPSY IMMEDIATE FILM TECHNIQUE: One view of the chest was acquired. COMPARISON: 12/17/2020 FINDINGS: Surgical changes and devices: Left-sided dual-lead pacemaker noted. Lungs and pleura: Left upper lobe mass lesion again noted to. Underlying hyperinflation present. Pleu ral space clear. No pneumothorax. Mediastinum: Mediastinal contours appear normal. Heart size is normal. Atherosclerotic vascular cecelia cification noted in the aortic arch. Bones and chest wall: No suspicious bony lesions. Overlying soft tissues appear unremarkable. Gener alized decreased osseous mineralization present. IMPRESSION: No pneumothorax status post lung biopsy Stable pulmonary hyperinflation left upper lobe mass lesion. Reviewed by: John Yu MD on 01/02/2021 11:49 AM SUE Approved by: John Yu MD on 01/02/2021 11:49 AM SUE Station ID: [id number]
--- NOTE | 2021-01-02 13:55 | CT Report ---
PROCEDURE: LT LUNG BX PERC Sedation analgesia for minutes. INDICATIONS: PULMONARY NODULE TECHNIQUE: The indications, alternatives, benefits, risks, and possible complications of the procedure were comm unicated to the patient. Informed written consent from the patient was obtained and placed in the art. Continuous EKG and hemodynamic monitoring was started by trained personnel. For radiation dose reduction, the following was used: automated exposure control, adjustment of mA and/or kV according to patient size. The patient was brought to the CT suite and bag inspector spiral CT imaging was performed with localization g rid. The appropriate site for percutaneous access to the biopsy target was marked, was prepped and d raped sterilely, and was infused with local anaesthesia. Under CT guidance, a core biopsy trocar and needle set was advanced to the biopsy target, and specimen(s) were obtained. The trocar and needle were then removed, a biosentry device was deployed, and the patient was sent for post-procedure monit oring. COMPARISON: None. FINDINGS: Prior to biopsy, the needle is within the left upper lobe mass. Right upper lobe nodule is present, as before. Severe bilateral emphysema is present, as before. Biopsy site: Left upper lobe mass. Needle: 20 gauge biopsy needle with introducer trocar. Number of passes: 3 Medications: 1% lidocaine for local anaesthesia. IV Fentanyl and Versed for conscious sedation for 30 minutes (see nursing record). Complications: None. IMPRESSION: Successful CT-guided biopsy of left upper lobe mass. Reviewed by: Keyonna Mcelroy MD on 01/02/2021 1:54 PM PDT Approved by: Keyonna Mcelroy MD on 01/02/2021 1:54 PM PDT Station ID: [id number]
--- NOTE | 2021-01-02 14:42 | XRAY Report ---
PROCEDURE: Chest 1 View X-Ray INDICATIONS: 2HR POST LUNG BIOPSY TECHNIQUE: One view of the chest was acquired. COMPARISON: 01/02/2021 at 1139 hours. FINDINGS: Surgical changes and devices: Cardiac pacer is stable.. Lungs and pleura: No pleural effusions or pneumothorax. Mass in the apex of the left lung is stable. Lungs remain hyperinflated. Mediastinum: Mediastinal contours appear normal. Heart size is normal. Bones and chest wall: No suspicious bony lesions. Overlying soft tissues appear unremarkable. IMPRESSION: No pneumothorax. Reviewed by: Janine Batista MD, PhD on 01/02/2021 2:41 PM PDT Approved by: Janine Batista MD, PhD on 01/02/2021 2:41 PM PDT Station ID: [id number]
[2021-01-02 15:59] VITALS: BP 149/57
--- NOTE | 2021-01-02 16:13 | XRAY Report ---
PROCEDURE: Chest 1 View X-Ray INDICATIONS: POST LUNG BIOPSY 4HR FILM TECHNIQUE: One view of the chest was acquired. COMPARISON: Chest x-ray 01/02/2021 FINDINGS: Surgical changes and devices: Pacemaker. Lungs and pleura: Possible trace left apical pneumothorax. No midline shift. Lungs are hyperexpanded. Left upper lobe mass is unchanged. Mediastinum: Mediastinal contours appear normal. Heart size is normal. Bones and chest wall: No suspicious bony lesions. Overlying soft tissues appear unremarkable. IMPRESSION: Possible trace left apical pneumothorax. Reviewed by: Lashawn Delaney MD on 01/02/2021 4:12 PM PDT Approved by: Lashawn Delaney MD on 01/02/2021 4:12 PM PDT Station ID: [id number]
== END 2021-01-02 08:57 | disposition home or self-care (01) ==
LOC: DI 08:56
PROVIDERS: ATTEND Physician Assistant Medical
DX: J98.4 Other disorders of lung (principal)
CPT/HCPCS: 32408; 36415; 85025; 85610; 85730

== ENCOUNTER 2021-01-02 16:44 | Observation (INO) | payer MEDICARE, OTHER ==
--- NOTE | 2021-01-02 17:36 | ED Physician Documentation ---
History of Present Illness - Stated complaint Stated Complaint: POST OP COMPLICATIONS - Chief complaint Chief Complaint: Resp - Additonal information Additional information: 86-year-old female who has a history of active tobaccoism as well as COPD was advised to come to the emergency department as she developed a small left apical pneumothorax after a biopsy completed in radiology today. She is denying any chest pain or worsening shortness of air. Patient is not typically on oxygen. She is otherwise independent of ADLs. She resides at [facility]. Review of Systems Constitutional: denies: Fever, Chills Eyes: reports: Reviewed and negative Ears: reports: Reviewed and negative Nose: reports: Reviewed and negative Throat: reports: Reviewed and negative Cardiac: reports: Reviewed and negative Respiratory: reports: Reviewed and negative GI: reports: Reviewed and negative : reports: Reviewed and negative PD PAST MEDICAL HISTORY - Past Medical History Cardiovascular: Hypertension, Atrial fibrillation, Other Respiratory: COPD, Emphysema Endocrine/Autoimmune: None GI: None : None HEENT: Chronic vision loss, Chronic hearing loss Psych: Depression Musculoskeletal: Other Derm: None - Past Surgical History Past Surgical History: Yes General: Colonoscopy Cardiovascular: Pacemaker HEENT: Other - Present Medications Home Medications: Ambulatory Orders Medication Instructions Recorded Confirmed Albuterol Sulfate [Proair 1 puffs IH BID 08/03/14 07/30/16 Respiclick] Carbidopa/Levodopa [Carbidopa-Levo 3 tab PO TID 08/03/14 07/30/16 25-100 mg Odt] amLODIPine [Norvasc] 5 mg PO DAILY 08/03/14 07/30/16 Cholecalciferol (Vitamin D3) 1,000 unit PO DAILY 06/08/16 07/30/16 [Vitamin D3] Potassium Chloride 1 tab PO DAILY 07/30/16 07/30/16 - Allergies Allergies/Adverse Reactions: Allergies Allergy/AdvReac Type Severity Reaction Status Date / Time No Known Drug Allergies Allergy Verified 01/02/21 16:53 - Social History Does the pt smoke?: Yes Smoking Status: Current every day smoker Does the pt drink ETOH?: Yes Does the pt have substance abuse?: No - Immunizations Immunizations are current?: Yes - POLST Patient has POLST: No PD ED PE EXPANDED - General General: Alert, No acute distress - Cardiac Cardiac: Regular Rate, Murmur Present, Radial strong equal, Pedal strong equal, Cap refill < 2 sec - Respiratory Respiratory: Clear to ausultation brooke, Rhonchi. No: Distress, Labored, Accessory mm use, Retractions, Wheezing - Abdomen Abdomen: Normal Bowel sounds. No: Tender to palpation - Derm Derm: Normal color, Warm and dry. No: Rash - Extremities Extremities: Normal. No: Deformity, Tenderness - Neuro Neuro: Alert and Oriented X 3, CNII-XII intact Results - Vitals Vitals: Vital Signs - 24 hr 01/02/21 01/02/21 16:44 16:53 Temperature 36.2 C L 36.5 C Heart Rate 60 60 Respiratory 18 18 Rate Blood Pressure 141/75 H 141/75 H O2 Saturation 100 100 Oxygen O2 Source Room air Oxygen Flow Rate 2 - Rads (name of study) CXR Radiology: Final report received (Small left apical pneumothorax) PD MEDICAL DECISION MAKING - ED course Complexity details: reviewed results, re-evaluated patient, d/w patient, d/w clinical operations consultant (Thaddeus) ED course: 86-year-old female who has a history of COPD was advised to come to the emergency department after she developed a small left apical pneumothorax after she had a lung biopsy done for pulmonary nodule that was completed here in our radiology suite today. X-ray does confirm a small left apical pneumothorax. Patient was seen by on-call surgery Dr. Travis who recommends medicine admission nasal cannula oxygen and repeat x-ray in a.m. He reports to this prov ider he will place a note on the chart. I then spoke with regional education manager hospitalist Dr. Moreno who clarified with Dr. Walker that surgery always admits pneumothorax. It was as this point that Dr. Jordan Reed agreed to admit the patient to the hospital under observation for further treatment of her left ptx. Departure - Departure Disposition: ED Place in Observation Clinical Impression: Pneumothorax after biopsy, History of COPD, Pulmonary nodule
[2021-01-02] MEDS ORDERED: NICOTINE 14 MG PATCH TOP STA (17:50)
[2021-01-02] MEDS ORDERED: oxyCODONE 5 MG TABLET PO PRN (18:45)
[2021-01-02] MEDS ORDERED: ACETAMINOPHEN 325 MG TABLET PO PRN (18:45)
[2021-01-02] MEDS ORDERED: SODIUM CHLORIDE FLUSH 0.9% 10 ML SYRINGE IVP PRN (18:45)
[2021-01-02] MEDS ORDERED: ONDANSETRON 4 MG/2 ML VIAL IVP PRN (18:45)
[2021-01-02] MEDS ORDERED: ONDANSETRON ODT 4 MG TABLET TL PRN (18:45)
[2021-01-02] MEDS ORDERED: ALBUTEROL NEB 2.5 MG/3 ML INH PRN (18:49)
--- NOTE | 2021-01-02 18:54 | SURGERY HX AND PHYSICAL(T) ---
Surgical History & Physical - Chief Complaint/HPI Chief Complaint: Small pneumothorax following CT guided lung biopsy History of Present Illness: Today is this absolutely delightful 86 year old's birthday. She had a LEFT lung biopsy for evaluation of a LEFT lung mass today. Follow up chest x-ray looking for pneumothorax revealed a small apical pneumothorax in this patient with a history of COPD and emphysema (daily smoker). Due to an abundance of concern I was called to bring her in under observation, give her oxygen and use serial exam and x-ray to ensure that the pneumothorax resolves. The patient is not complaining of shortness of breath or cough at this time. She wants to make sure that we called [facility] [facility] she resides so that her family not visit her for her birthday there. - PMH/PSH/Social Hx Does the pt have a hx of MRSA?: No Eyes, Ears, Nose, Throat: Chronic vision loss, Chronic hearing loss Cardiovascular: Hypertension, Atrial fibrillation, Other Respiratory: COPD, Emphysema Skin: None Endocrine/Autoimmune: None Gastrointestinal: None Urinary: None Musculoskeletal: Other Blood Disorders: None Psychiatric: Depression General: Colonoscopy Cardiothoracic: Pacemaker Eyes Ears Nose Throat (EENT): Other Smoking Status: Current every day smoker Does the pt drink ETOH?: Yes Frequency: Daily Does the pt have substance abuse?: No - Home Meds and Allergies Home Medications: Albuterol Sulfate [Proair Respiclick] 1 puffs IH BID 08/03/14 Carbidopa/Levodopa [Carbidopa-Levo 25-100 mg Odt] 3 tab PO TID 08/03/14 amLODIPine [Norvasc] 5 mg PO DAILY 08/03/14 Cholecalciferol (Vitamin D3) [Vitamin D3] 1,000 unit PO DAILY 06/08/16 Potassium Chloride 1 tab PO DAILY 07/30/16 Allergies/Adverse Reactions: Allergies Allergy/AdvReac Type Severity Reaction Status Date / Time No Known Drug Allergies Allergy Verified 01/02/21 16:53 - Review of Systems Constitutional: No: Fever, Chills, Malaise, Weakness HEENT: No: Headaches Skin: No: Cyanosis Respiratory: Shortness of breath Gastrointestinal: No: Nausea, Vomiting, Difficulty swallowing Gentinourinary: No: Dysuria Neurological: No: Dizziness Musculoskeletal: No: Muscle pain Hematologic: No: Anemia Psychiatric: No: Depression, Anxiety Endocrinologic: No: Sweating - Vital Signs Heart Rate: 60 Blood Pressure: 141/75 Temperature: 36.5 C Respiratory Rate: 18 O2 Saturation: 100 Weight (kg): 45.813 kg Height: 1.63 m - Physical Exam General Appearance: positive: No acute distress, Alert Eyes Bilatera: positive: No lid inflammation, Conjunctivae nml ENT: positive: No signs of dehydration, Other (Dentures.) Neck: positive: No JVD, Trachea midline. negative: Carotid bruit Respiratory: positive: Chest non-tender, No respiratory distress, Breath sounds nml (On RIGHT.), Wheezes (On LEFT.) Cardiovascular: positive: Regular rate & rhythm Abdomen: positive: Non-tender, No organomegaly, Nml bowel sounds, No distention. negative: Hepatomegaly, Splenomegaly Skin: positive: Color nml Extremities: positive: Non-tender, Nml appearance. negative: Pedal edema, Calf tenderness, Hanna's sign/cords Neurologic/Psychiatric: positive: Oriented x3, Motor nml, Sensation nml, Mood/affect nml - Patient Review Patient Review: Problems were reviewed with the patient during this visit. Medications were reviewed with the patient during this visit. Allergies were reviewed this patient during this visit. Pertinent Tests Reviewed: All pertitent test for this patient were reviewed. - Assessment & Plan Assessment and Plan: Patient is an 86 year old female with COPD, emphysema and a LEFT lung mass (current every day smoker) who has developed a small apical pneumothorax following percutaneous biopsy today. Considering her base disease the conservative approach is O2 supplementation, observation and repeat CXR in AM. The likelihood that she will require tube thoracostomy is low. General diet. Restart her normal medications. Expect clinical improvement in AM. I appreciate the opportunity to be involved in this patient's care.
[2021-01-02] MEDS ORDERED: LACTATED RINGERS 1,000 ML IV SCH (19:00)
[2021-01-02 20:33] LABS: B. PARAPERTUSSIS- RESP PCR PAN NOT DETECTED; B. PERTUSSIS- RESP PCR PANEL NOT DETECTED; C. PNEUMONIAE- RESP PCR PANEL NOT DETECTED; CORONAVIRUS 229E-RESP PCR NOT DETECTED; CORONAVIRUS HKU1-RESP PCR NOT DETECTED; CORONAVIRUS NL63-RESP PCR NOT DETECTED; CORONAVIRUS OC43-RESP PCR NOT DETECTED; HUMAN METAPNEUMOVIRUS NOT DETECTED; INFLUENZA A- RESP PCR PANEL NOT DETECTED; INFLUENZA B - RESP PCR PANEL NOT DETECTED; M. PNEUMONIAE- RESP PCR PANEL NOT DETECTED; PARAINFLUENZA VIRUS 1 NOT DETECTED; PARAINFLUENZA VIRUS 2 NOT DETECTED; PARAINFLUENZA VIRUS 3 NOT DETECTED; PARAINFLUENZA VIRUS 4 NOT DETECTED; RHINOVIRUS/ENTEROVIRUS NOT DETECTED; RSV- RESP PCR PANEL NOT DETECTED; SARS-CoV-2 -RESP PCR PANEL NOT DETECTED
[2021-01-03] MEDS: SODIUM CHLORIDE FLUSH 0.9% 10 ML SYRINGE IVP SCH ×2 (03:02→08:36)
[2021-01-03] MEDS ORDERED: CARBIDOPA/LEVODOPA 25 MG/100 MG TABLET PO PRN ×2 (07:20→08:23)
--- NOTE | 2021-01-03 08:25 | PHARMACY PROGRESS NOTE ---
- Best Possible Medication History Admit Date and Time: 01/02/21 1845 Processed by: Pharmacy Medication History completed: Yes Patient Interview: Completed Secondary Source(s): Physician records, Pharmacy records, Insurance records As the person ultimately responsible for medication therapy, providers are able to order a medication from an existing home medication list in [facility] via the "Reconcile Routine" prior to Confirmation of that medication by production support analyst. Such practice is discouraged except when the physician, in their clinical judgment, deems that a medical need exists for a medication without regard to previous use.
[2021-01-03] MEDS ORDERED: amLODIPine 5 MG TABLET PO SCH (09:00)
[2021-01-03] MEDS ORDERED: POTASSIUM CHLORIDE 8 MEQ PO SCH (09:00)
--- NOTE | 2021-01-03 10:02 | XRAY Report ---
PROCEDURE: Chest 1 View X-Ray INDICATIONS: pneumo followup TECHNIQUE: One view of the chest was acquired. COMPARISON: Chest radiographs dated 01/02/2021; CT dated 12/17/2020 and biopsy dated 01/02/2021. FINDINGS: Surgical changes and devices: Stable left chest wall 2-lead cardiac device with leads overlying the e xpected locations of the right atrium and right ventricle. Lungs and pleura: Linear lucency at the left lung apex suggestive of tiny apical pneumothorax with ap ical cap measuring approximately 3-4 mm decreased from prior exam. Lungs are hyperinflated and hyperl ucent. No focal consolidation or large joint pleural effusion. Mediastinum: Mediastinal contours appear normal. Heart size is normal. Vascular calcifications wit hin the aorta. Bones and chest wall: No suspicious bony lesions. Degenerative changes of the spine. Left upper lob e mass better depicted on comparison CTs. Overlying soft tissues appear unremarkable. IMPRESSION: Tiny left apical pneumothorax with apical cap measuring approximately 3-4 mm, decreased from most rec ent comparison exam. Reviewed by: Lukas Barragan DO on 01/03/2021 9:01 AM SUE Approved by: Lukas Barragan DO on 01/03/2021 9:01 AM SUE Station ID: [id number]
[2021-01-03 11:32] VITALS: BP 131/76
--- NOTE | 2021-01-03 11:57 | DISCHARGE SUMMARY ---
"Discharge Summary Admit Date: 01/02/21 Discharge Date: 01/03/21 Discharging Provider: MD Jose Code Status: Attempt Resuscitation Condition at Discharge: Stable Discharge Disposition: 03 SNF DC/Xfer - DIAGNOSES Admission Diagnoses: LEFT apical pneumothorax Discharge Diagnoses with Status of Each Condition: LEFT post-procedural apical pneumothorax improved. - HPI History of Present Illness: LEFT post-procedural apical pneumothorax after CT guided biopsy. - CONSULTS | PROCEDURES Consultations: None. Procedures: None. - ALLERGIES Allergies/Adverse Reactions: Allergies Allergy/AdvReac Type Severity Reaction Status Date / Time No Known Drug Allergies Allergy Verified 01/02/21 16:53 - MEDICATIONS Home Medications: Ambulatory Orders Medication Instructions Recorded Confirmed Albuterol Sulfate [Proair 2 puffs IH Q4H PRN 08/03/14 01/03/21 Respiclick] Carbidopa/Levodopa [Carbidopa-Levo 0.25 - 1 tab PO TID PRN 08/03/14 01/03/21 25-100 mg Odt] amLODIPine [Norvasc] 5 mg PO DAILY 08/03/14 01/03/21 Cholecalciferol (Vitamin D3) 2,000 unit PO DAILY 06/08/16 01/03/21 [Vitamin D3] Fluticasone/Salmeterol [Advair 1 puffs INH BID 01/03/21 01/03/21 250-50 Diskus] Spironolactone [Aldactone] 12.5 mg PO DAILY 01/03/21 01/03/21 - PHYSICAL EXAM AT DISCHARGE General Appearance: positive: No acute distress Eyes Bilateral: positive: No lid inflammation, Conjunctivae nml, No scleral icterus ENT: positive: No signs of dehydration Neck: positive: Nml inspection, Trachea midline. negative: Carotid bruit Respiratory: positive: Chest non-tender, No respiratory distress, Breath sounds nml, Wheezes (Slight on LEFT.) Cardiovascular: positive: Regular rate & rhythm Abdomen: positive: Non-tender, Nml bowel sounds Extremities: positive: Non-tender, Nml appearance. negative: Hanna's sign/cords Neurologic/Psychiatric: positive: Oriented x3, Motor nml, Sensation nml, Mood/affect nml - FOLLOW UP Follow Up: 1 week with PCP AFTER chest x-ray is resulted. - TIME SPENT Time Spent in Discharge (Minutes): 45"
--- NOTE | 2021-01-03 12:02 | Discharge Plan ---
"Discharge Plan for SNF / [facility] - Discharge Plan And Transition Orders Problem Reviewed?: Yes Disposition: 03 SNF DC/Xfer Condition: Stable Allergies and Adverse Reactions: Allergies Allergy/AdvReac Type Severity Reaction Status Date / Time No Known Drug Allergies Allergy Verified 01/02/21 16:53 Health Concerns: Pneumothorax improved with time and O2 via nasal cannula. Expect complete resolution. Restrictions are no scuba diving, airplane travel for 6 weeks. Pathology pending. Patient examined this morning and is sitting in chair without any increased shortness of breath. Clinically back to pre-procedure status. Plan of Treatment: As above. Care Goals: Continued improvement in symptoms and stabilization. Assessment: Patient is in agreement with and understands the plan. - SNF / [facility] Transition Orders Admit to (Facility): [facility] Discharge Diagnosis: Post procedure pneumothorax. COPD. LEFT lung mass. Medicare Certification Statement: I certify that [facility] group home care is medically necessary on a continuing basis for any of the conditions for which she/he is receiving care during hospitalization. Notify PCP of admission and forward orders to primary provider for signature. Other Notification Orders: Call PCP immediately if patient develops dyspnea, chest pain/tightness or edema. House Bowel Program: Yes Additional Bowel Program Orders: If no BM after 2 days, nurse may give M.O.M. 30ml PO PRN and/or ducolax Supp 1 [place] and/or JACOB 250mg P.O., and/or senna 1-2 tabs PO. On day 3 nurse may give repeat above order until residents constipation is resolved. Annual Influenza Vaccine (between Nov 05 and June 04): Yes Two-step PPD per [facility] [phone] or approved exception documents: Yes Treatments & Other Orders: Check chest X-ray in 1 week. Medication Orders: PLEASE REFER TO THE DISCHARGE MEDICATION LIST. Insulin Orders?: No - Diet Type: Geriatric Texture: Regular Liquids: Thin May have monthly special meal: Yes - Therapies | Activity Activity: Activity as Tolerated Weight Bearing: Full Weight Follow Up: PCP in 1 week AFTER chest x-ray is resulted."
== END 2021-01-03 14:15 ==
LOC: ED 16:44 → MS2 18:45
PROVIDERS: ADMIT Surgery; ATTEND Surgery
DX: J95.811 Postprocedural pneumothorax (principal); J43.9 Emphysema, unspecified; F17.210 Nicotine dependence, cigarettes, uncomplicated; J98.4 Other disorders of lung; Z95.0 Presence of cardiac pacemaker; R91.1 Solitary pulmonary nodule; I48.91 Unspecified atrial fibrillation; I10 Essential (primary) hypertension; Z20.822 Contact with and (suspected) exposure to COVID-19
CPT/HCPCS: 32408; 36415; 71045; 85025; 85610; 85730; 87631; 99283; 99285; A9270; G0378; J7120; 0202U

== ENCOUNTER 2021-04-07 09:32 | Outpatient (CLI) | payer MEDICARE, OTHER ==
[2021-04-07 13:49] LABS: BASOPHILS # (AUTO) 0.1 10^3/uL (0.0-0.1); BASOPHILS % (AUTO) 1.1 %; EOSINOPHILS # (AUTO) 0.7 10^3/uL (0.0-0.7); EOSINOPHILS % (AUTO) 8.9 %; HCT - HEMATOCRIT 43.5 % (37.0-47.0); HGB - HEMOGLOBIN 14.4 g/dL (12.0-16.0); LYMPHOCYTES # (AUTO) 1.4 10^3/uL (1.5-3.5); LYMPHOCYTES % (AUTO) 19.5 %; MEAN CORPUSCULAR HEMOGLOBIN 30.5 pg (27.0-31.0); MEAN CORPUSCULAR HGB CONC 33.1 g/dL (32.0-36.0); MEAN CORPUSCULAR VOLUME 92.2 fL (81.0-99.0); MEAN PLATELET VOLUME 9.2 fL (7.9-10.8); MONOCYTES # (AUTO) 0.8 10^3/uL (0.0-1.0); MONOCYTES % (AUTO) 10.4 %; NEUTROPHILS # (AUTO) 4.4 10^3/uL (1.5-6.6); NEUTROPHILS % (AUTO) 59.8 %; PLT - PLATELET COUNT 196 10^3/uL (130-450); RED BLOOD COUNT 4.72 10^6/uL (4.20-5.40); RED CELL DISTRIBUTION WIDTH 12.7 % (12.0-15.0); WHITE BLOOD COUNT 7.3 x10^3/uL (4.8-10.8)
[2021-04-07 14:10] LABS: ALBUMIN 4.2 g/dL (3.2-5.5); ALBUMIN/GLOBULIN RATIO 1.7 (1.0-2.2); ALKALINE PHOSPHATASE 54 IU/L (42-121); ALT ALANINE AMINOTRANSFERASE < 10 IU/L (10-60); AST ASPARTATE AMINOTRANSFERASE 19 IU/L (10-42); BILIRUBIN,TOTAL 0.7 mg/dL (0.2-1.0); BUN - BLOOD UREA NITROGEN 18 mg/dL (6-20); CALCIUM 9.2 mg/dL (8.5-10.3); CARBON DIOXIDE - CO2 27 mmol/L (21-32); CHLORIDE 94 mmol/L (101-111); CHOL/HDL RATIO 2.1 (<4.4); CHOLESTEROL 230 mg/dL; CREATININE 0.8 mg/dL (0.4-1.0); GFR - MDRD 68 (>89); GLUCOSE 93 mg/dL (70-100); HDL CHOLESTEROL 110 mg/dL; LDL CHOLESTEROL,CALCULATED 105 mg/dL; POTASSIUM 4.3 mmol/L (3.5-5.0); SODIUM 131 mmol/L (135-145); TOTAL PROTEIN 6.7 g/dL (6.7-8.2); TRIGLYCERIDES 75 mg/dL; VLDL CHOLESTEROL 15 mg/dL
== END 2021-04-07 09:33 | disposition home or self-care (01) ==
LOC: LAB.N 09:32
PROVIDERS: ATTEND Physician Assistant Medical
DX: E78.5 Hyperlipidemia, unspecified (principal); J44.9 Chronic obstructive pulmonary disease, unspecified
CPT/HCPCS: 36415; 80053; 80061; 83721; 85025

== ENCOUNTER 2021-09-14 10:49 | Outpatient (CLI) | payer MEDICARE, OTHER ==
--- NOTE | 2021-09-14 17:29 | XRAY Report ---
PROCEDURE: Cervical Spine 2 View INDICATIONS: DEGENERATIVE DISC DISEASE, CERVICAL SPINE TECHNIQUE: 3 view(s) of the cervical spine were acquired. COMPARISON: None. FINDINGS: Bones: No fractures or dislocations to the superior endplate of C7 level. The lateral masses of C1 appear intact on the odontoid view. No suspicious bony lesions. There is approximately 4 mm of anter olisthesis of C4 and C5. This is likely related to advanced spondylitic changes and facet arthropathy . Diffuse osteopenia. No acute compression fractures. Severe multilevel facet arthropathy throughout the imaged cervical spine. Moderate-severe cervical spondylosis with disc space loss, degenerative en dplate changes, and endplate osteophyte formation. Findings are most severe at C4-5 and C5-6. There a re also apparent postsurgical changes from prior mid cervical spine laminectomies. Soft tissues: No prevertebral soft tissue swelling. IMPRESSION: Cervical spine without acute fracture. Moderate-severe multilevel cervical spondylosis w ith mild anterolisthesis of C4 and C5 likely related to advanced spondylosis. Reviewed by: Jack Bradshaw MD on 09/14/2021 5:28 PM PDT Approved by: Jack Bradshaw MD on 09/14/2021 5:28 PM PDT Station ID: [id number]
== END 2021-09-14 10:50 | disposition home or self-care (01) ==
LOC: DI 10:49
PROVIDERS: ATTEND Physician Assistant Medical
DX: M47.812 Spondylosis without myelopathy or radiculopathy, cervical region (principal); M43.12 Spondylolisthesis, cervical region

== ENCOUNTER 2021-09-30 11:49 | Outpatient (CLI) | payer MEDICARE, OTHER | END 2021-09-30 11:50 | disposition critical access hospital (66) | LOC: EMS 11:49 | DX: R07.9 Chest pain, unspecified (principal); R51.9 Headache, unspecified | CPT/HCPCS: A0425; A0427 ==

== ENCOUNTER 2021-09-30 12:09 | Emergency (ER) | payer MEDICARE, OTHER ==
[2021-09-30 12:20] VITALS: BP 146/69
--- NOTE | 2021-09-30 12:29 | ED Physician Documentation ---
History of Present Illness - Stated complaint Stated Complaint: CP - Chief complaint Chief Complaint: Cardiac - Additonal information Additional information: 86-year-old female presents emergency department for evaluation of a brief episode of chest pain. She describes a very busy morning in which she was running a lot of errands including to [employer]. She states that she had to walk slower than she normally would as she felt fatigued. However when she got home and sat in her chair she developed an ache in her chest that she thinks lasted maybe about 2 minutes. It is fully subsided. She denies a history of similar in the past. She does have a pacemaker in place. She takes carbidopa levodopa but is not on any antihypertensive medications or anticoagulants. Does have a longstanding history of asthma for which she uses multiple inhalers. Denies any dyspnea at this time. No leg swelling. Review of Systems Constitutional: reports: Reviewed and negative Cardiac: reports: Chest pain / pressure. denies: Palpitations, Pedal edema, Calf pain Respiratory: reports: Reviewed and negative : reports: Reviewed and negative Skin: reports: Reviewed and negative Musculoskeletal: reports: Reviewed and negative Neurologic: reports: Reviewed and negative Psychiatric: reports: Reviewed and negative PD PAST MEDICAL HISTORY - Past Medical History Cardiovascular: Hypertension, Atrial fibrillation, Other Respiratory: COPD, Emphysema Neuro: None Endocrine/Autoimmune: None GI: None : None HEENT: Chronic vision loss, Chronic hearing loss Psych: Depression Musculoskeletal: Osteoarthritis, Other Derm: None - Past Surgical History Past Surgical History: Yes General: Colonoscopy Cardiovascular: Pacemaker HEENT: Other - Present Medications Home Medications: Ambulatory Orders Medication Instructions Recorded Confirmed Albuterol Sulfate [Proair 2 puffs IH Q4H PRN 08/03/14 01/03/21 Respiclick] Carbidopa/Levodopa [Carbidopa-Levo 0.25 - 1 tab PO TID PRN 08/03/14 01/03/21 25-100 mg Odt] amLODIPine [Norvasc] 5 mg PO DAILY 08/03/14 01/03/21 Cholecalciferol (Vitamin D3) 2,000 unit PO DAILY 06/08/16 01/03/21 [Vitamin D3] Fluticasone/Salmeterol [Advair 1 puffs INH BID 01/03/21 01/03/21 250-50 Diskus] Spironolactone [Aldactone] 12.5 mg PO DAILY 01/03/21 01/03/21 - Allergies Allergies/Adverse Reactions: Allergies Allergy/AdvReac Type Severity Reaction Status Date / Time No Known Drug Allergies Allergy Verified 09/30/21 12:20 - Social History Does the pt smoke?: Yes Smoking Status: Current every day smoker Does the pt drink ETOH?: Yes Does the pt have substance abuse?: No - Immunizations Immunizations are current?: Yes - POLST Patient has POLST: No PD ED PE NORMAL - General General: Alert and oriented X 3, No acute distress, Well developed/nourished - HEENT HEENT: Atraumatic, Moist mucous membranes - Cardiac Cardiac: RRR, No murmur, Other (Paced ECG rhythm) - Respiratory Respiratory: No respiratory distress - Abdomen Abdomen: Normal bowel sounds, Soft, Non tender - Back Back: No CVA TTP, No spinal TTP - Derm Derm: Normal color, Warm and dry, No rash - Extremities Extremities: No deformity, No tenderness to palpate, Normal ROM s pain - Neuro Neuro: Alert and oriented X 3, 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 Eye Opening: Spontaneous Motor: Obeys Commands Verbal: Oriented GCS Score: 15 Results - Vitals Vitals: Vital Signs - 24 hr 09/30/21 12:15 Temperature 37.1 C Heart Rate 60 Respiratory 20 Rate Blood Pressure 146/69 H O2 Saturation 92 Oxygen O2 Source Room air - EKG (time done) 1243 Rate: Rate (enter#) (60) Rhythm: Paced (Atrially paced.) [place]: Anterior hemiblock (Left anterior fascicular block.) QRS: LVH Ischemia: Q waves (Anterior leads V2 through V5) Compare to prior EKG: Old EKG unavailable Computer interpretation: Agree with computer - Labs Labs: Laboratory Tests 09/30/21 09/30/21 09/30/21 12:09 12:09 12:09 WBC 13.3 H RBC 3.89 L Hgb 12.0 Hct 34.6 L MCV 88.9 MCH 30.8 MCHC 34.7 RDW 12.6 Plt Count 202 MPV 8.5 Neut # (Auto) 10.6 H Lymph # (Auto) 0.7 L Hubbard # (Auto) 1.3 H Eos # (Auto) 0.6 Baso # (Auto) 0.1 Absolute Nucleated RBC 0.00 Nucleated RBC % 0.0 Sodium 130 L Potassium 4.3 Chloride 94 L Carbon Dioxide 25 Anion Gap 11.0 BUN 18 Creatinine 0.7 Estimated GFR (MDRD) 79 L Glucose 101 H Calcium 8.7 Total Bilirubin 1.1 H AST 17 ALT 10 Alkaline Phosphatase 60 Troponin I High Sens 10.5 Total Protein 6.4 L Albumin 3.6 Globulin 2.8 Albumin/Globulin Ratio 1.3 Lipase 25 - Rads (name of study) CXR Radiology: EMP read indepedently (Pacemaker noted. No acute cardiopulmonary process.) PD MEDICAL DECISION MAKING - ED course Complexity details: reviewed results, re-evaluated patient, considered differential, d/w patient ED course: 86-year-old female presents emergency department for a brief episode of chest pain that occurred when she returned to her home after running errands. She denies a history of hypertension but was a heavy smoker currently using a nicotine patch. Also has a history of asthma and COPD. She does have a pacemaker in place but denies any previous history of coronary artery disease. Today her screening EKG shows a atrially paced rhythm. More than 2 hours after the chest pain event her high-sensitivity troponin is negative. Chest x-ray is without acute focal findings. This patient does have a moderately high heart score. Unfortunately [facility] does not have the ability or capacity to admit for cardiac stress testing. In addition to that all [facility] are 100% full and not excepting nonemergent patients. Therefore I have discussed this case with the patient's primary care provider Karely Odonnell. She will order outpatient urgent stress test and echocardiogram. This plan was discussed with the patient and she is comfortable with discharge home. Emergent return precautions were discussed for return of chest pain Departure - Departure Disposition: 01 Home, Self Care Clinical Impression: Chest pain Qualifiers: Chest pain type: unspecified Qualified Code(s): R07.9 - Chest pain, unspecified Condition: Stable Record reviewed to determine appropriate education?: Yes Comments: Spring you were seen today in the emergency department because you developed some chest discomfort after running errands this morning. With your history of tobac co use as well as your age you are at high risk for coronary artery disease that could lead to a heart attack. Today we do not have findings of acute myocardial infarction. However it is important that you have urgent outpatient stress test and echocardiogram. I have discussed this ED visit with your primary care provider and she is ordering the outpatient testing. If you do not hear from your primary care office or the referral provider within the next 48 to 72 hours please contact Karely Odonnell's office. In the short-term return immediately to the ER for any episodes of chest pain or shortness of air
[2021-09-30 12:39] LABS: BASOPHILS # (AUTO) 0.1 10^3/uL (0.0-0.1); BASOPHILS % (AUTO) 0.5 %; EOSINOPHILS # (AUTO) 0.6 10^3/uL (0.0-0.7); EOSINOPHILS % (AUTO) 4.6 %; HCT - HEMATOCRIT 34.6 % (37.0-47.0); LYMPHOCYTES # (AUTO) 0.7 10^3/uL (1.5-3.5); LYMPHOCYTES % (AUTO) 5.2 %; MEAN CORPUSCULAR HEMOGLOBIN 30.8 pg (27.0-31.0); MEAN CORPUSCULAR HGB CONC 34.7 g/dL (32.0-36.0); MEAN CORPUSCULAR VOLUME 88.9 fL (81.0-99.0); MEAN PLATELET VOLUME 8.5 fL (7.9-10.8); MONOCYTES # (AUTO) 1.3 10^3/uL (0.0-1.0); MONOCYTES % (AUTO) 9.7 %; NEUTROPHILS # (AUTO) 10.6 10^3/uL (1.5-6.6); NEUTROPHILS % (AUTO) 79.6 %; PLT - PLATELET COUNT 202 10^3/uL (130-450); RED BLOOD COUNT 3.89 10^6/uL (4.20-5.40); RED CELL DISTRIBUTION WIDTH 12.6 % (12.0-15.0); WHITE BLOOD COUNT 13.3 x10^3/uL (4.8-10.8)
[2021-09-30 12:52] LABS: ALBUMIN 3.6 g/dL (3.2-5.5); ALBUMIN/GLOBULIN RATIO 1.3 (1.0-2.2); BILIRUBIN,TOTAL 1.1 mg/dL (0.2-1.0); CALCIUM 8.7 mg/dL (8.5-10.3); CREATININE 0.7 mg/dL (0.4-1.0); POTASSIUM 4.3 mmol/L (3.5-5.0); TOTAL PROTEIN 6.4 g/dL (6.7-8.2)
--- NOTE | 2021-09-30 13:53 | XRAY Report ---
PROCEDURE: Chest 1 View X-Ray INDICATIONS: Chest Pain TECHNIQUE: One view of the chest was acquired. COMPARISON: 01/03/2021 FINDINGS: Surgical changes and devices: Left-sided cardiac pacer device is in place. Lungs and pleura: Redemonstration of hyperaeration and pulmonary emphysematous changes. No definite pneumothorax seen. No substantial pleural effusion. Chronic appearing interstitial prominence. Mild p atchy bibasilar airspace opacities likely representing atelectasis. No pleural effusions or pneumotho rax. Lungs are clear. Mediastinum: Mediastinal contours appear normal. Heart size is normal. Vascular calcifications are noted in the aortic arch. Bones and chest wall: No suspicious bony lesions. Overlying soft tissues appear unremarkable. IMPRESSION: Mild patchy bibasilar opacities likely representing atelectasis. No focal consolidations. Redemonstration of pulmonary emphysematous changes. No definite pneumothorax visualized. Reviewed by: Jack Bradshaw MD on 09/30/2021 1:52 PM PDT Approved by: Jack Bradshaw MD on 09/30/2021 1:52 PM PDT Station ID: [id number]
== END 2021-09-30 13:48 | disposition home or self-care (01) ==
LOC: EDUNIT# → ED 12:09
DX: R07.9 Chest pain, unspecified (principal); F17.200 Nicotine dependence, unspecified, uncomplicated
CPT/HCPCS: 36415; 80053; 83690; 84484; 85025; 93005; 99283; 99284

== ENCOUNTER 2022-04-15 08:44 | Outpatient (CLI) | payer MEDICARE, OTHER ==
--- NOTE | 2022-04-16 08:25 | Mammography Report ---
BILATERAL DIGITAL SCREENING MAMMOGRAM: 04/15/2022 CLINICAL: Routine screening. Comparison is made to exams dated: 11/19/2020 mammogram, 03/23/2019 mammogram, 04/30/2014 mammogram, 04/12/2013 mammogram, 04/27/2012 mammogram, and 04/22/2011 mammogram - [facility]. Both breasts are extremely dense, which lowers the sensitivity of mammography (category d />75% gland ular tissue). No significant masses, calcifications, or other findings are seen in either breast. There has been no significant interval change. IMPRESSION: NEGATIVE There is no mammographic evidence of malignancy. A 1 year screening mammogram is recommended. This exam was interpreted at Station ID: [id number]. NOTE: For mammograms, a report in lay terms will be sent to the patient. Approximately 15% of breast malignancies will not be visualized mammographically. In the management of a palpable breast mass, a negative mammogram must not discourage biopsy of a clinically suspicious lesion. Electronically Signed By: Eris elias/penrad:04/15/2022 11:58:41 ACR BI-RADS Category 1: Negative [id number] PARENCHYMAL PATTERN: (VD) - The breast(s) demonstrate(s) extremely dense parenchyma, limiting the sen sitivity of mammography. BI-RADS CATEGORY: (1) - 1 RECOMMENDATION: (ANNUAL) - Recommend routine annual screening mammography. [id number] 1 year screening LATERALITY: (B)
== END 2022-04-15 08:45 | disposition home or self-care (01) ==
LOC: DI.N 08:44
DX: Z12.31 Encounter for screening mammogram for malignant neoplasm of breast (principal); E78.5 Hyperlipidemia, unspecified; J44.9 Chronic obstructive pulmonary disease, unspecified
CPT/HCPCS: 36415; 80053; 80061; 83721; 85025

== ENCOUNTER 2022-04-15 08:50 | Outpatient (CLI) | payer MEDICARE, OTHER ==
[2022-04-15 11:44] LABS: BASOPHILS # (AUTO) 0.1 10^3/uL (0.0-0.1); BASOPHILS % (AUTO) 1.2 %; EOSINOPHILS # (AUTO) 0.6 10^3/uL (0.0-0.7); EOSINOPHILS % (AUTO) 7.9 %; HCT - HEMATOCRIT 42.4 % (37.0-47.0); HGB - HEMOGLOBIN 13.6 g/dL (12.0-16.0); LYMPHOCYTES # (AUTO) 1.1 10^3/uL (1.5-3.5); LYMPHOCYTES % (AUTO) 15.1 %; MEAN CORPUSCULAR HEMOGLOBIN 30.1 pg (27.0-31.0); MEAN CORPUSCULAR HGB CONC 32.1 g/dL (32.0-36.0); MEAN CORPUSCULAR VOLUME 93.8 fL (81.0-99.0); MONOCYTES # (AUTO) 0.8 10^3/uL (0.0-1.0); MONOCYTES % (AUTO) 11.2 %; NEUTROPHILS # (AUTO) 4.8 10^3/uL (1.5-6.6); NEUTROPHILS % (AUTO) 64.1 %; PLT - PLATELET COUNT 218 10^3/uL (130-450); RED BLOOD COUNT 4.52 10^6/uL (4.20-5.40); RED CELL DISTRIBUTION WIDTH 14.1 % (12.0-15.0); WHITE BLOOD COUNT 7.5 x10^3/uL (4.8-10.8)
[2022-04-15 12:31] LABS: ALBUMIN 4.2 g/dL (3.2-5.5); ALBUMIN/GLOBULIN RATIO 1.6 (1.0-2.2); ALKALINE PHOSPHATASE 71 IU/L (42-121); ALT ALANINE AMINOTRANSFERASE < 10 IU/L (10-60); AST ASPARTATE AMINOTRANSFERASE 20 IU/L (10-42); BILIRUBIN,TOTAL 0.7 mg/dL (0.2-1.0); BUN - BLOOD UREA NITROGEN 17 mg/dL (6-20); CALCIUM 9.7 mg/dL (8.5-10.3); CARBON DIOXIDE - CO2 30 mmol/L (21-32); CHLORIDE 98 mmol/L (101-111); CHOL/HDL RATIO 1.9 (<4.4); CHOLESTEROL 216 mg/dL; CREATININE 0.8 mg/dL (0.4-1.0); GFR - MDRD 68 (>89); GLUCOSE 97 mg/dL (70-100); HDL CHOLESTEROL 111 mg/dL; LDL CHOLESTEROL,CALCULATED 95 mg/dL; LDL/HDL RATIO 0.9 (<4.4); POTASSIUM 4.2 mmol/L (3.5-5.0); SODIUM 137 mmol/L (135-145); TOTAL PROTEIN 6.9 g/dL (6.7-8.2); TRIGLYCERIDES 51 mg/dL; VLDL CHOLESTEROL 10 mg/dL
== END 2022-04-15 08:51 | disposition home or self-care (01) ==
LOC: LAB.N 08:50
PROVIDERS: ATTEND Physician Assistant Medical
DX: E78.5 Hyperlipidemia, unspecified (principal); J44.9 Chronic obstructive pulmonary disease, unspecified
CPT/HCPCS: 36415; 80053; 80061; 83721; 85025

== ENCOUNTER 2022-10-20 09:21 | Outpatient (CLI) | payer MEDICARE, OTHER ==
[2022-10-20 12:32] LABS: CREATININE 0.8 mg/dL (0.4-1.0)
== END 2022-10-20 09:22 | disposition home or self-care (01) ==
LOC: LAB.N 09:21
PROVIDERS: ATTEND Family Medicine
DX: R59.0 Localized enlarged lymph nodes (principal)
CPT/HCPCS: 36415; 82565

== ENCOUNTER 2022-11-05 10:16 | Outpatient (CLI) | payer MEDICARE, OTHER ==
[2022-11-05] MEDS ORDERED: iohexoL-300 100 ML VIAL IVP ONE (11:22)
--- NOTE | 2022-11-05 12:39 | CT Report ---
PROCEDURE: CT neck with contrast INDICATIONS: CERVICAL LYMPHADENOPATHY TECHNIQUE: Helical axial CT of the neck was obtained after an intravenous contrast injection, and re formatted in multiple planes. For radiation dose reduction, the following was used: automated exposu re control, adjustment of mA and/or kV according to patient size. Palpable abnormality was marked on the patient's skin COMPARISON: None. FINDINGS: Skull Base: The visualized intracranial contents, skull, and orbits are unremarkable. Visualized par anasal sinuses are clear. Bilateral intraocular lens replacements noted. Pharynx and Larynx: The nasopharyngeal airway is patent and midline. Parapharyngeal soft tissues in cluding palantine tonsils and base of the tongue are normal. Retropharyngeal space unremarkable. No rmal appearance of the false and true vocal cords. Muscles and Fascial Planes : Fascial planes are well maintained. No abscess or mass lesion. Lymph Nodes: No evidence of adenopathy. Vasculature: Unremarkable. Submandibular and Parotid Glands: Normal in size and attenuation. Skin markers correspond with the b ilateral normal-appearing submandibular glands. Thyroid: Unremarkable Bones: No acute fracture. No osteolytic or blastic lesion is evident. Normal bone mineralization. D egenerative disc disease and arthropathy noted in the cervical spine, associated with moderate centra l stenosis C1-2. Lung Apices: Emphysematous changes noted in the lung apices. Left-sided pacemaker noted. IMPRESSION: No evidence of cervical adenopathy. The skin markers are correspond with a normal-appearing bilateral submandibular glands. Multilevel degenerative disc disease and arthropathy results in moderate central stenosis at C1-2 Moderate biapical pulmonary emphysema, partially visualized Reviewed by: John Yu MD on 11/05/2022 11:38 AM SUE Approved by: John Yu MD on 11/05/2022 11:38 AM SUE Station ID: [id number]
== END 2022-11-05 10:17 | disposition home or self-care (01) ==
LOC: DI 10:16
PROVIDERS: ATTEND Family Medicine
DX: R59.0 Localized enlarged lymph nodes (principal); M47.812 Spondylosis without myelopathy or radiculopathy, cervical region; M50.31 Other cervical disc degeneration, high cervical region; M48.02 Spinal stenosis, cervical region
CPT/HCPCS: 70491; Q9967

== ENCOUNTER 2022-12-09 00:59 | Outpatient (CLI) | payer MEDICARE, OTHER | END 2022-12-09 01:00 | disposition EMS.NT | LOC: EMS 00:59 | DX: R05.9 Cough, unspecified (principal); R06.02 Shortness of breath ==